=== PATIENT | female | born 1985 | race Caucasian/White ===

== ENCOUNTER 2016-09-04 17:56 | Inpatient (IN) | payer BC ==
[2016-09-04] VITALS (8 sets, daily range): BP systolic 108–133; BP diastolic 56–78
[~2016-09-04] VITALS: Ht 172.7 cm; Wt 124.0 kg
[~2016-09-04 17:56] MED LIST: ARTIFICIAL TEAR1510 BOTH EYES; AUGMENTIN875 MG PO; BACTRIM,SEPT1 TABLET PO; COUMADIN10 MG PO; GLYBURIDE2.5 MG PO; HYDROCHLOROTHIA25 MG PO; LEVOTHYROXINE125 MCG PO; LEVOTHYROXINE88 MCG PO; LOVENOX40 MG/0.4 SC; METFORMIN HCL1000 MG PO; PREDNISONE10 MG PO; PRENATAL TABLE1 EAC3 PO; TOPAMAX100 MG PO; TYLENOL WITH C1 EACH PO
[2016-09-04 18:54] LABS: HEMATOCRIT 37.6 % (36.0-46.0); MCH 32.2 PG (29.0-34.0); MCHC 35.4 G/DL (30.0-36.0); MEAN PLAT.VOLUME 11.8 uM^3 (9.5-12.4); PLATELET COUNT 155 K/uL (156-360); RBC DIS.WIDTH-CV 13.2 % (11.8-14.6); RBC DIS.WIDTH-SD 43.1 % (39-53); RED BLOOD COUNT 4.13 M/uL (3.80-5.20); WHITE BLOOD COUNT 9.3 K/uL (4.1-10.2)
[2016-09-04 18:58] LABS: EOSINOPHIL (%) 1.2 % (0-5); EOSINOPHIL COUNT 0.1 K/uL (0-0.3); IMMATURE GRANULOCYTE (%) 1.6 % (0.0-0.7); IMMATURE GRANULOCYTE COUNT 0.2 K/uL; MONOCYTE (%) 9.2 % (3-12); MONOCYTE COUNT 0.9 K/uL (0-0.8); NEUTROPHIL (%) 66.1 % (45-76); NEUTROPHIL COUNT 6.2 K/uL (1.8-6.4)
[2016-09-04] MEDS ORDERED: LEVO-T150 MCG PO (19:12)
[2016-09-04] MEDS ORDERED: HEPARIN SO5000 UNITS SC (19:16)
[2016-09-04] MEDS ORDERED: VALTREX1000 MG PO (19:17)
[2016-09-04] MEDS ORDERED: HUMULIN N100 UNITS/ SQ ×2 (19:21→19:22)
[2016-09-04] MEDS ORDERED: HUMALOG100 UNIT/1 SC ×3 (19:24→19:26)
[2016-09-04 20:36] LABS: POINT-OF-CARE METER ID UU13113801
[2016-09-05] VITALS (29 sets, daily range): BP systolic 86–145; BP diastolic 51–82
[2016-09-05 00:28] LABS: POINT-OF-CARE METER ID UU13113801
[2016-09-05 04:21] LABS: POINT-OF-CARE METER ID UU13113801
[2016-09-06] VITALS (15 sets, daily range): BP systolic 116–145; BP diastolic 60–90
[2016-09-06 05:39] LABS: BASE EXCESS -12.5 mEq/L (-3 to +3); BICARBONATE 19.6 mEq/L (22-26); CARBOXY HGB 1.1 % (0-5); METHEMOGLOBIN 1.6 % (0-1.5); PCO2 71 mm Hg (35-45)
[2016-09-06 05:42] LABS: COMMENTS - BLOOD GASES ARTERIAL; PO2 29 mm Hg (80-100); SITE UMBILICAL CORD; pH 7.05 (7.35-7.45)
[2016-09-06 05:43] LABS: BICARBONATE 18.6 mEq/L (22-26); CARBOXY HGB 1.6 % (0-5); COMMENTS - BLOOD GASES VENOUS; PCO2 60 mm Hg (35-45); PO2 33 mm Hg (80-100); SITE UMBILICAL CORD
[2016-09-07 06:09] LABS: EOSINOPHIL (%) 1.3 % (0-5); EOSINOPHIL COUNT 0.2 K/uL (0-0.3); HEMATOCRIT 34.8 % (36.0-46.0); IMMATURE GRANULOCYTE (%) 0.7 % (0.0-0.7); IMMATURE GRANULOCYTE COUNT 0.1 K/uL; LYMPHOCYTE COUNT 2.6 K/uL (1.0-2.8); MCH 31.4 PG (29.0-34.0); MCHC 34.2 G/DL (30.0-36.0); MCV 91.8 FL (83-99); MONOCYTE (%) 8.4 % (3-12); MONOCYTE COUNT 1.1 K/uL (0-0.8); NEUTROPHIL (%) 70.3 % (45-76); NEUTROPHIL COUNT 9.5 K/uL (1.8-6.4); PLATELET COUNT 147 K/uL (156-360); RBC DIS.WIDTH-CV 13.6 % (11.8-14.6); RBC DIS.WIDTH-SD 44.3 % (39-53); RED BLOOD COUNT 3.79 M/uL (3.80-5.20); WHITE BLOOD COUNT 13.6 K/uL (4.1-10.2)
[2016-09-07 07:50] VITALS: BP 128/69
[2016-09-07 15:00] VITALS: BP 118/78
[2016-09-07 23:27] VITALS: BP 125/72
[2016-09-08 08:00] VITALS: BP 116/71
[2016-09-08] MEDS ORDERED: LOVENOX40 MG/0.4 SC (08:20)
[2016-09-08] MEDS ORDERED: METFORMIN HCL500 MG PO (08:20)
== END 2016-09-08 12:51 | disposition home or self-care (01) | DRG 774 ==
LOC: LDRP-OP 17:56 → 2WEST 17:57 → LDRP-OP 10-17 13:57
PROVIDERS: Midwife; Nurse Practitioner; Obstetrics & Gynecology
DX: O70.1 Second degree perineal laceration during delivery (principal); O62.0 Primary inadequate contractions; O10.02 Pre-existing essential hypertension complicating childbirth; Z3A.38 38 weeks gestation of pregnancy; Z37.0 Single live birth; O69.81X0 Labor and delivery complicated by cord around neck, without compression, not applicable or unspecified; E66.01 Morbid (severe) obesity due to excess calories; O99.214 Obesity complicating childbirth; O75.89 Other specified complications of labor and delivery; O99.284 Endocrine, nutritional and metabolic diseases complicating childbirth; E72.12 Methylenetetrahydrofolate reductase deficiency; D68.2 Hereditary deficiency of other clotting factors; O36.0930 Maternal care for other rhesus isoimmunization, third trimester, not applicable or unspecified; E03.9 Hypothyroidism, unspecified; A60.09 Herpesviral infection of other urogenital tract; O98.32 Other infections with a predominantly sexual mode of transmission complicating childbirth; O99.113 Other diseases of the blood and blood-forming organs and certain disorders involving the immune mechanism complicating pregnancy, third trimester; O24.12 Pre-existing type 2 diabetes mellitus, in childbirth; Z79.4 Long term (current) use of insulin; Z68.39 Body mass index [BMI] 39.0-39.9, adult
CPT/HCPCS: 36600; 82803; 82948; 83030; 85025; 86850; 86900; 86901; C1755; G0378; J1650; J1815; J2405; J2765; J2790; J3010; J7120